=== PATIENT | female | born 1975 | race Caucasian/White ===

== ENCOUNTER 2017-11-12 07:45 | Day surgery (SDC) | payer OTHER ==
[~2017-11-12 07:45] MED LIST: SUCCINYLCHOLINE CHLORIDE 100 MG/5 ML SYG IV
[2017-11-12 10:13] LABS: ADD MAN DIFF? NO
[2017-11-12 10:15] LABS: WHITE BLOOD COUNT 7.3 10^3/ul (4.8-10.8)
[2017-11-12 10:15] LABS: BASOPHIL # 0.1 10^3/ul (0.0-0.1); BASOPHILS % 1.2 % (0.0-2.0); EOSINOPHILS # 0.2 10^3/ul (0.0-0.5); EOSINOPHILS % 2.8 % (0.0-7.0); HEMATOCRIT 37.5 % (37.0-47.0); HEMOGLOBIN 11.7 g/dl (12.0-16.0); LYMPHOCYTES % 27.5 % (15.0-51.0); MEAN CORPUSCULAR HEMOGLOBIN 26.7 pg (29.0-33.0); MEAN CORPUSCULAR HGB CONC 31.2 g/dl (32.0-37.0); MEAN CORPUSCULAR VOLUME 85.4 fl (82.0-101.0); MEAN PLATELET VOLUME 9.8 fl (7.4-10.4); MONOCYTE # 0.4 10^3/ul (0.3-0.9); MONOCYTES % 5.1 % (0.0-11.0); NEUTROPHIL # 4.6 10^3/ul (1.6-7.5); NEUTROPHILS % 63.3 % (39.0-77.0); PLATELET COUNT 365 10^3/UL (140-415); RED BLOOD COUNT 4.39 10^6/ul (4.20-5.40); RED CELL DISTRIBUTION WIDTH 13.2 % (11.5-14.5)
[2017-11-12 10:37] LABS: ALANINE AMINOTRANSFERASE 36 IU/L (13-69); ALBUMIN 3.9 g/dl (3.3-4.9); ALBUMIN/GLOBULIN RATIO 1.14; ALKALINE PHOSPHATASE 89 IU/L (42-121); ANION GAP 15 (8-16); ASPARTATE AMINO TRANSFERASE 27 IU/L (15-46); BILIRUBIN,INDIRECT 0.3 mg/dl (0-1.1); BILIRUBIN,TOTAL 0.3 mg/dl (0.2-1.3); CARBON DIOXIDE 26 mmol/L (21-31); CHLORIDE 108 mmol/L (97-110); GLUCOSE 114 mg/dl (70-220); TOTAL PROTEIN 7.3 g/dl (6.1-8.1)
[2017-11-12 10:43] LABS: BLOOD UREA NITROGEN 9 mg/dl (7-20); POTASSIUM 4.1 mmol/L (3.5-5.1)
[2017-11-12 10:44] LABS: ADD UMIC YES; CALCIUM 10.9 mg/dl (8.4-10.2); SODIUM 145 mmol/L (135-144); UR ASCORBIC ACID NEGATIVE (NEGATIVE); UR BILIRUBIN (Dip) NEGATIVE (NEGATIVE); UR BLOOD (Dip) 3+ mg/dL (NEGATIVE); UR CLARITY CLOUDY (CLEAR); UR COLOR RED (YELLOW); UR GLUCOSE (Dip) 1+ mg/dL (NEGATIVE); UR KETONES (Dip) NEGATIVE (NEGATIVE); UR LEUKOCYTE ESTERASE (Dip) 1+ Leu/ul (NEGATIVE); UR MUCUS FEW /HPF (NONE SEEN); UR NITRITE (Dip) NEGATIVE (NEGATIVE); UR NONSQUAMOUS EPITHELIAL CELL 4 /HPF (NONE SEEN); UR RBC > 182 /HPF (0-5); UR SPECIFIC GRAVITY (Dip) 1.016 (1.003-1.030); UR TOTAL PROTEIN (Dip) 2+ mg/dl (NEGATIVE); UR UROBILINOGEN (Dip) NEGATIVE (NEGATIVE); UR WBC 143 /HPF (0-5)
[2017-11-12 10:51] LABS: INR 0.96; PROTIME 12.9 Sec (11.9-14.9)
[2017-11-12 10:52] LABS: PARTIAL THROMBOPLASTIN TIME 27.9 Sec (25.0-35.0)
[2017-11-12] MEDS ORDERED: PROPOFOL 20 ML (12:38)
[2017-11-12] MEDS ORDERED: NEOSTIGMINE 3 MG/3 ML SYRINGE (12:38)
[2017-11-12] MEDS ORDERED: GLYCOPYRROLATE 0.4 MG INJ (12:38)
[2017-11-12] MEDS ORDERED: ONDANSETRON 4 MG INJ (12:38)
[2017-11-12] MEDS ORDERED: MIDAZOLAM 1 MG/ML 2 ML INJ (12:38)
[2017-11-12] MEDS ORDERED: ROCURONIUM 50 MG INJ (12:38)
[2017-11-12] MEDS ORDERED: FENTAnyl 50 MCG/ML VIAL (12:38)
[2017-11-12] MEDS ORDERED: CEFAZOLIN 1 GM INJ (12:38)
[2017-11-12] MEDS ORDERED: DEXAMETHASONE 4 MG/ML 1 ML INJ (12:39)
[2017-11-12] MEDS ORDERED: ERTAPENEM SODIUM 1 GM in SOD CHLORIDE 0.9% 100 ML IVPB (13:00)
[2017-11-12] MEDS ORDERED: SUGAMMADEX SODIUM 200 MG/2 ML VIAL IV (13:43)
[2017-11-12] MEDS ORDERED: FUROSEMIDE 20 MG INJ (13:53)
[2017-11-12] MEDS ORDERED: HYDROCODONE/APAP (5/325) TAB PO (14:30)
[2017-11-12] MEDS: ONDANSETRON 4 MG INJ IV (15:28)
== END 2017-11-12 16:22 | disposition home or self-care (01) ==
LOC: SDS 07:45
DX: N20.0 Calculus of kidney (principal); Z87.891 Personal history of nicotine dependence; E11.9 Type 2 diabetes mellitus without complications; I10 Essential (primary) hypertension; E78.00 Pure hypercholesterolemia, unspecified
CPT/HCPCS: 50590; 71045; 74018; 74430; 80053; 81001; 82962; 85025; 85610; 85730; 87086; 93005

== ENCOUNTER 2018-07-03 09:45 | Emergency (ER) | payer OTHER ==
[2018-07-03 10:50] LABS: ADD UMIC YES; UR ASCORBIC ACID NEGATIVE (NEGATIVE); UR BACTERIA FEW /HPF (NONE SEEN); UR BILIRUBIN (Dip) NEGATIVE (NEGATIVE); UR BLOOD (Dip) 2+ mg/dL (NEGATIVE); UR CLARITY CLEAR (CLEAR); UR COLOR YELLOW (YELLOW); UR GLUCOSE (Dip) NEGATIVE (NEGATIVE); UR KETONES (Dip) NEGATIVE (NEGATIVE); UR LEUKOCYTE ESTERASE (Dip) NEGATIVE Leu/ul (NEGATIVE); UR MUCUS FEW /HPF (NONE SEEN); UR NITRITE (Dip) NEGATIVE (NEGATIVE); UR RBC 29 /HPF (0-5); UR SPECIFIC GRAVITY (Dip) 1.016 (1.003-1.030); UR TOTAL PROTEIN (Dip) NEGATIVE (NEGATIVE); UR UROBILINOGEN (Dip) NEGATIVE (NEGATIVE); UR WBC 2 /HPF (0-5)
== END 2018-07-03 11:13 | disposition home or self-care (01) ==
LOC: FTE 09:45
DX: N20.0 Calculus of kidney (principal); Z79.84 Long term (current) use of oral hypoglycemic drugs
CPT/HCPCS: 76775; 81001; 84703; 99284-25

== ENCOUNTER 2019-01-13 05:26 | Day surgery (SDC) | payer OTHER ==
[2019-01-13] MEDS ORDERED: SUCCINYLCHOLINE CHLORIDE 100 MG/5 ML SYG IV ×2 (06:27→07:10)
[2019-01-13] MEDS ORDERED: CEFAZOLIN 1 GM INJ ×2 (06:27→07:10)
[2019-01-13] MEDS ORDERED: ROCURONIUM 50 MG INJ ×2 (06:27→07:13)
[2019-01-13] MEDS ORDERED: MIDAZOLAM 1 MG/ML 2 ML INJ (06:27)
[2019-01-13] MEDS ORDERED: PROPOFOL 0 ML (06:27)
[2019-01-13] MEDS ORDERED: ONDANSETRON 4 MG INJ ×2 (06:27→07:55)
[2019-01-13] MEDS ORDERED: KETOROLAC 30 MG INJ (06:28)
[2019-01-13] MEDS: SOD CHLORIDE 0.9% 1,000 ML IV (06:41)
[2019-01-13] MEDS ORDERED: PROPOFOL 20 ML (07:10)
[2019-01-13] MEDS ORDERED: LIDOCAINE 2% (SDV) 5 ML INJ (07:10)
[2019-01-13] MEDS ORDERED: FENTAnyl 50 MCG/ML VIAL (07:10)
[2019-01-13] MEDS ORDERED: METOCLOPRAMIDE 10 MG INJ (07:56)
[2019-01-13] MEDS ORDERED: FAMOTIDINE 20 MG INJ (07:56)
[2019-01-13] MEDS ORDERED: ALBUTEROL 0.083% (NEB) 2.5 MG/3 ML AMP HHN (08:00)
[2019-01-13] MEDS ORDERED: OXYCODONE/ACETAMINOPHEN (5/325) TAB PO ×2 (08:00)
[2019-01-13] MEDS ORDERED: LABETALOL HCL 20MG INJ IV (08:00)
[2019-01-13] MEDS ORDERED: HYDROmorphONE 1 MG/5 ML IV SYRINGE IV ×3 (08:00)
[2019-01-13] MEDS ORDERED: MEPERIDINE 25 MG INJ IV (08:00)
[2019-01-13] MEDS ORDERED: MIDAZOLAM 1 MG/ML 2 ML INJ IV (08:00)
[2019-01-13] MEDS ORDERED: ONDANSETRON 4 MG INJ IV ×2 (08:00→09:00)
[2019-01-13] MEDS ORDERED: EPHEDrine 25 MG/5 ML SYG (08:04)
[2019-01-13] MEDS ORDERED: SUGAMMADEX SODIUM 200 MG/2 ML VIAL IV ×2 (08:04→08:47)
[2019-01-13] MEDS ORDERED: FUROSEMIDE 20 MG INJ (08:33)
[2019-01-13] MEDS ORDERED: HYDROCODONE/APAP (5/325) TAB PO (09:00)
[2019-01-13] MEDS: INSULIN REGULAR, HUMAN 100 UNIT/1 ML 3ML VIAL SC (09:25)
[2019-01-13] MEDS: CEFAZOLIN 2 GM/50 ML (PMX) 50 ML IVPB (09:32)
[2019-01-13] MEDS ORDERED: ESMOLOL 100 MG INJ IV (10:30)
== END 2019-01-13 11:30 | disposition home or self-care (01) ==
LOC: SDS 05:26
DX: N20.0 Calculus of kidney (principal); I10 Essential (primary) hypertension; E11.9 Type 2 diabetes mellitus without complications
CPT/HCPCS: 50590; 74430; 82962; 84703